=== PATIENT | male | born 1995 ===

== ENCOUNTER 2016-12-19 15:16 | Emergency (ER) | payer BC, OTHER ==
--- NOTE | 2016-12-19 15:41 | ED PDOC ---
HPI: General Adult Time Seen by Provider: 12/19/16 15:26 Chief Complaint (Nursing): Trauma Chief Complaint (Provider): laceration History Per: Patient History/Exam Limitations: no limitations Additional Complaint(s): 21yo male was playing basketball when he jumped up into another player's head accidentally, colliding with the other player's teeth. Patient did not hit his head against the ground or lose consciousness. No dizziness or headache now. Unsure of last tetanus. Past Medical History Reviewed: Historical Data, Nursing Documentation, Vital Signs Vital Signs: Last Vital Signs Temp 97.7 F 12/19/16 15:18 Pulse 80 12/19/16 15:18 Resp 18 12/19/16 15:18 BP 151/69 H 12/19/16 15:18 Pulse Ox 99 12/19/16 17:09 - Medical History PMH: Asthma - Surgical History Surgical History: No Surg Hx - Family History Family History: States: Unknown Family Hx - Home Medications Home Medications: Ambulatory Orders Medication Instructions Recorded Moxifloxacin [Avelox Tab] 400 mg PO DAILY #7 tab 12/19/16 - Allergies Allergies/Adverse Reactions: Allergies Allergy/AdvReac Type Severity Reaction Status Date / Time amoxicillin trihydrate Allergy RASH Verified 12/19/16 15:18 [From Augmentin] potassium clavulanate Allergy RASH Verified 12/19/16 15:18 [From Augmentin] Review of Systems ROS Statement: Except As Marked, All Systems Reviewed And Found Negative Physical Exam - Reviewed Nursing Documentation Reviewed: Yes Vital Signs Reviewed: Yes - Physical Exam Appears: Positive for: Well, Non-toxic, No Acute Distress Head Exam: Negative for: ATRAUMATIC (+curved laceration, not gaping but i am able to separate it) Skin: Positive for: Warm, Dry Eye Exam: Positive for: EOMI, PERRL Extremity: Positive for: Normal ROM - ECG O2 Sat by Pulse Oximetry: 99 (RA) Pulse Ox Interpretation: Normal Medical Decision Making Medical Decision Makin: scalp laceration from impact by teeth. Explained CT is not indicated. Agrees to take Rx antibiotics. Tetanus ordered. 1624 patient does not consent to mono. Will dermabond instead. Disposition - Clinical Impression Clinical Impression: Scalp laceration, Human bite - Disposition Referrals: [facility] [Outside] Disposition Time: 17:00 Condition: FAIR Additional Instructions: Follow up with your PCP in 2-3 days. Wound recheck in 3 days. Prescriptions: Moxifloxacin [Avelox Tab] 400 mg PO DAILY #7 tab Instructions: Laceration (ED), Head Injury (ED), Skin Adhesive Care (ED) Additional Comments - Additional Comments Additional Comments: Scribe Attestation: Documented by Baljit Fishman acting as a scribe for Katey Hunt MD. Scribe Attestation: All medical record entries made by the Scribe were at my direction and personally dictated by me. I have reviewed the chart and agree that the record accurately reflects my personal performance of the history, physical exam, medical decision making, and the department course for this patient. I have also personally directed, reviewed, and agree with the discharge instructions and disposition. Laceration - Laceration Repair Pariatal scalp Wound Length (In cm): 5 Description Of Wound: Linear (curved) Wound Examination: Irrigated With Saline Wound Closure: Skin Glue (dermabond) Wound Complexity: Simple
[2016-12-19] MEDS ORDERED: TDAP Vaccine 0.5 mL Syr IM ONE (15:46)
[2016-12-19 17:29] VITALS: BP 100/60; PULSE 84; RESP 20; TEMP 98; O2SAT 98
--- NOTE | 2016-12-20 23:11 | CARD ---
APPROVED REPORT EKG Measurement Heart [id number] <Conclusion> Normal sinus rhythm Possible Left atrial enlargement Borderline ECG
== END 2016-12-19 17:29 | disposition home or self-care (01) ==
LOC: H.ER 15:16
DX: S01.01XA Laceration without foreign body of scalp, initial encounter (principal); W22.8XXA Striking against or struck by other objects, initial encounter; Y93.67 Activity, basketball; J45.909 Unspecified asthma, uncomplicated

== ENCOUNTER 2017-05-12 20:52 | Emergency (ER) | payer BC ==
[2017-05-12 20:57] VITALS: BP 127/67; PULSE 72; RESP 16; TEMP 98.1; O2SAT 100
--- NOTE | 2017-05-12 21:06 | ED PDOC ---
Lower Extremity Pain/Injury Time Seen by Provider: 05/12/17 21:01 Chief Complaint (Nursing): Lower Extremity Problem/Injury Chief Complaint (Provider): Left ankle injury History Per: Patient History/Exam Limitations: no limitations Onset/Duration Of Symptoms: Days (x1 week), Worse Since (today) Current Symptoms Are (Timing): Still Present Severity: Mild Additional Complaint(s): Jean Carlos Sol is a 21 year old male who presents to the emergency department complaining of left ankle pain s/p injury 1 week ago while playing basketball. Patient did not seek medical attention at time of injury. Patient has been able to walk and bear weight since time of injury. He has been icing affected area which has helped. Patient has not taken any meds for pain relief. Patient states he came to ED today to be checked out. He rates current pain as 5/10. He denies any associated numbness or tingling to affected area. PMD: None provided. - Ankle/Foot Description Of Injury: Other (sprained ankle) Past Medical History Reviewed: Historical Data, Nursing Documentation, Vital Signs Vital Signs: Last Vital Signs Temp 98.1 F 05/12/17 20:54 Pulse 72 05/12/17 20:54 Resp 16 05/12/17 20:54 BP 127/67 05/12/17 20:54 Pulse Ox 100 05/12/17 20:54 - Medical History PMH: Asthma - Surgical History Surgical History: No Surg Hx - Family History Family History: States: No Known Family Hx - Living Arrangements Living Arrangements: With Family - Social History Current smoker - smoking cessation education provided: No Alcohol: None Drugs: Denies - Home Medications Home Medications: Ambulatory Orders Medication Instructions Recorded Moxifloxacin [Avelox Tab] 400 mg PO DAILY #7 tab 12/19/16 - Allergies Allergies/Adverse Reactions: Allergies Allergy/AdvReac Type Severity Reaction Status Date / Time amoxicillin trihydrate Allergy RASH Verified 12/19/16 15:18 [From Augmentin] potassium clavulanate Allergy RASH Verified 12/19/16 15:18 [From Augmentin] Wells Criteria for PE - Wells Criteria for Pulmonary Embolism Clinical Signs and Symptoms of DVT: No P.E is #1 Diagnosis, or Equally Likely: No Heart Rate >100: No Immobilization at least 3 days;Surgery previous 4 weeks: No Previous, objectively diagnosed PE or DVT: No Hemoptysis: No Malignancy w/treatment within 6 months, or palliative: No Total Score: 0 Review of Systems ROS Statement: Except As Marked, All Systems Reviewed And Found Negative Musculoskeletal: Positive for: Other (left ankle injury) Physical Exam - Reviewed Nursing Documentation Reviewed: Yes Vital Signs Reviewed: Yes - Physical Exam Appears: Positive for: Well, Non-toxic, No Acute Distress Skin: Positive for: Normal Color. Negative for: Rash Eye Exam: Positive for: Normal appearance Extremity: Positive for: Tenderness (mild tenderness and swelling to left lateral malleolus. Nontender left foot), Swelling (to left lateral malleolus). Negative for: Calf Tenderness, Deformity Neurologic/Psych: Positive for: Alert, Oriented, Gait (steady) - ECG O2 Sat by Pulse Oximetry: 100 (RA) Pulse Ox Interpretation: Normal - Other Rad right ankle x-ray X-Ray: Interpreted by Me, Viewed By Me X-Ray Interpretation: no fx, no dis Medical Decision Making Medical Decision Making: Initial Impression: 21 y/o male with left ankle pain s/p injury last week Initial Plan: --Ankle left 3 views [RAD] --Patient declined pain meds Patient declined aircast. Patient was instructed to ice and elevate affected area and take NSAID's for pain prn. Patient was referred to podiatry clinic for follow up. Scribe Attestation: Documented by Jason Irwin, acting as a scribe for Elisa CONTEH. Provider Scribe Attestation: All medical record entries made by the Scribe were at my direction and personally dictated by me. I have reviewed the chart and agree that the record accurately reflects my personal performance of the history, physical exam, medical decision making, and the department course for this patient. I have also personally directed, reviewed, and agree with the discharge instructions and disposition. Disposition - Clinical Impression Clinical Impression: Ankle sprain and strain - Patient ED Disposition Is Patient to be Admitted: No Counseled Patient/Family Regarding: Studies Performed, Diagnosis, Need For Followup - Disposition Referrals: Podiatry Clinic [Outside] Disposition: Routine/Home Disposition Time: 21:34 Condition: STABLE Additional Instructions: Ice, rest and elevate affected area. Take over the counter motrin for pain as needed. Follow up with podiatry clinic in 2-3 days. Instructions: Ankle Sprain (ED) Forms: [facility] (Icelandic)
--- NOTE | 2017-05-13 08:18 | RAD ---
PROCEDURE: Left Ankle Radiographs. HISTORY: trauma COMPARISON: None FINDINGS: BONES: Tiny avulsion chip fracture may present inferior to lateral malleolus. No large fracture is appreciated. JOINTS: Normal. No osteoarthritis. Ankle mortise maintained. Talar dome intact SOFT TISSUES: Limited lateral malleolar soft tissue edema is identified. OTHER FINDINGS: None. IMPRESSION: A tiny linear chip or avulsion fracture may be present inferior to lateral malleolus. This is of indeterminate age but could also reflect heterotopic soft tissue calcification. Limited lateral malleolar soft tissue edema is identified.
== END 2017-05-12 21:43 | disposition home or self-care (01) ==
LOC: H.ER 20:52
DX: S99.912A Unspecified injury of left ankle, initial encounter (principal); X50.9XXA Other and unspecified overexertion or strenuous movements or postures, initial encounter; Y92.310 Basketball court as the place of occurrence of the external cause

== ENCOUNTER 2017-09-04 21:59 | Emergency (ER) | payer BC ==
[2017-09-04 22:02] VITALS: RESP 16; O2SAT 98
[2017-09-04] MEDS ORDERED: Sodium Chloride 0.9% 1,000 ML IV STA (22:21)
--- NOTE | 2017-09-04 22:24 | ED PDOC ---
HPI: Abdomen Time Seen by Provider: 09/04/17 22:04 Chief Complaint (Nursing): Abdominal Pain Chief Complaint (Provider): abdominal pain History Per: Patient History/Exam Limitations: no limitations Onset/Duration Of Symptoms: Hrs Current Symptoms Are (Timing): Still Present Location Of Pain/Discomfort: Epigastric Quality Of Discomfort: Stabbing, "Pain" Associated Symptoms: Nausea, Vomiting, Diarrhea Additional History Per: Patient Additional Complaint(s): 21 y/o male presents with epigastric abdominal pain x 8 hours. Associated one vomiting episode and multiple nonbloody diarrhea episodes. Patient states symptoms started after eating spicy food for lunch. Denies fever, cough , congestion, chest pain, shortness of breath, palpitations, urinary symptoms, recent travel, sick contacts. Past Medical History Reviewed: Historical Data, Nursing Documentation, Vital Signs Vital Signs: Last Vital Signs Temp 97.9 F 09/04/17 22:01 Pulse 69 09/04/17 22:01 Resp 16 09/04/17 22:01 BP 129/71 09/04/17 22:01 Pulse Ox 98 09/04/17 22:25 - Medical History PMH: Asthma - Family History Family History: States: Unknown Family Hx - Home Medications Home Medications: Ambulatory Orders Medication Instructions Recorded Moxifloxacin [Avelox Tab] 400 mg PO DAILY #7 tab 12/19/16 Famotidine [Pepcid] 20 mg PO BID #10 tab 09/05/17 Ondansetron ODT [Zofran ODT] 4 mg PO Q8 PRN #10 odt 09/05/17 - Allergies Allergies/Adverse Reactions: Allergies Allergy/AdvReac Type Severity Reaction Status Date / Time amoxicillin trihydrate Allergy RASH Verified 12/19/16 15:18 [From Augmentin] potassium clavulanate Allergy RASH Verified 12/19/16 15:18 [From Augmentin] Review of Systems ROS Statement: Except As Marked, All Systems Reviewed And Found Negative Gastrointestinal: Positive for: Nausea, Vomiting, Abdominal Pain, Diarrhea Physical Exam - Reviewed Nursing Documentation Reviewed: Yes Vital Signs Reviewed: Yes - Physical Exam Appears: Positive for: Well, Non-toxic, No Acute Distress Head Exam: Positive for: ATRAUMATIC, NORMAL INSPECTION, NORMOCEPHALIC Skin: Positive for: Normal Color Eye Exam: Positive for: Normal appearance ENT: Positive for: Normal ENT Inspection Cardiovascular/Chest: Positive for: Regular Rate, Rhythm Respiratory: Positive for: Normal Breath Sounds Gastrointestinal/Abdominal: Positive for: Bowel Sounds, Soft, Tenderness ( epigastric) Back: Positive for: Normal Inspection Extremity: Positive for: Normal ROM Neurologic/Psych: Positive for: Alert, Oriented - Laboratory Results Result Diagrams: 09/04/17 22:30 09/04/17 22:30 - ECG O2 Sat by Pulse Oximetry: 98 - Progress ED Course And Treament: labs, urine, IV fluids, IV pepcid, IV zofran On re-eval, patient tolerating PO, states he is feeling better. patient educated on findings, discharged with rx pepcid, zofran. Advised follow up PMD 2-3 days. Fluids. [place] diet. Return precautions given. Disposition - Clinical Impression Clinical Impression: Gastroenteritis - Patient ED Disposition Is Patient to be Admitted: No Counseled Patient/Family Regarding: Studies Performed, Diagnosis, Need For Followup, Rx Given - Disposition Disposition: Routine/Home Disposition Time: 03:32 Condition: IMPROVED Prescriptions: Famotidine [Pepcid] 20 mg PO BID #10 tab Ondansetron ODT [Zofran ODT] 4 mg PO Q8 PRN #10 odt PRN Reason: Nausea/Vomiting Instructions: Gastroenteritis (ED) Forms: [employer] (Amharic)
[2017-09-04 22:55] LABS: BASO % 0.3 % (0.0-2.0); EOS # 0.6 K/uL (0.0-0.7); EOS % 4.7 % (0.0-4.0); HEMOGLOBIN 14.5 g/dL (12.0-18.0); LYMPH # 1.2 K/uL (1.0-4.3); LYMPH % 9.8 % (20.0-40.0); MEAN CELL VOLUME 91.7 fl (80.0-94.0); MEAN CORPUSCULAR HEMOGLOBIN 29.4 pg (27.0-31.0); MEAN CORPUSCULAR HGB CONC 32.1 g/dL (33.0-37.0); MEAN PLATELET VOLUME 9.6 fl (7.2-11.7); MONO % 8.4 % (0.0-10.0); NEUT # 9.1 K/uL (1.8-7.0); NEUT % 76.8 % (50.0-75.0); PLATELET COUNT 186 K/uL (130-400); RBC 4.92 Mil/uL (4.40-5.90); RED CELL DISTRIBUTION WIDTH 13.2 % (11.5-14.5); WHITE BLOOD COUNT 11.8 K/uL (4.8-10.8)
[2017-09-04 23:19] LABS: BANDS 3 % (0-2); EOSINOPHIL 5 % (0-7); LYMPHOCYTE 9 % (20-50); MONOCYTE 8 % (0-10); NEUTROPHIL 75 % (42-75); PLATELET ESTIMATE NORMAL (NORMAL); TOTAL CELLS COUNTED 100
[2017-09-04 23:44] LABS: ALBUMIN 4.9 g/dL (3.5-5.0); ALT/SGPT 45 U/L (21-72); AST/SGOT 49 U/L (17-59); BLOOD UREA NITROGEN 29 mg/dl (9-20); CALCIUM 9.1 mg/dL (8.4-10.2); GFR AFRICAN-AMERICAN > 60; GFR NON-AFRICAN AMERICAN > 60; LIPASE 76 U/L (23-300)
[2017-09-05 00:34] LABS: ALB/GLOB RATIO 1.4 (1.0-2.1)
[2017-09-05] MEDS ORDERED: Sodium Chloride 0.9% 1,000 ML IV STA (01:13)
[2017-09-05 03:42] VITALS: BP 111/78; PULSE 86; TEMP 99
== END 2017-09-05 03:45 | disposition home or self-care (01) ==
LOC: H.ER 21:59
DX: K52.9 Noninfective gastroenteritis and colitis, unspecified (principal); J45.909 Unspecified asthma, uncomplicated; Z88.0 Allergy status to penicillin
CPT/HCPCS: 80053; 83690; 85025; 96361; 96374; 96375; 99283; J2405; J7040